=== PATIENT | female | born 1955 | race Caucasian/White ===

== ENCOUNTER → 2020-01-23 | Outpatient (CLI) | payer MEDICARE | LOC: RAH 08:08 | PROVIDERS: ATTEND Internal Medicine | DX: R10.11 Right upper quadrant pain (principal); R10.13 Epigastric pain | CPT/HCPCS: 76705 ==

== ENCOUNTER → 2020-01-28 | Outpatient (CLI) | payer MEDICARE | END | disposition home or self-care (01) | LOC: RAH 09:05 | PROVIDERS: ATTEND Internal Medicine | DX: J84.10 Pulmonary fibrosis, unspecified (principal); R10.13 Epigastric pain; Z90.49 Acquired absence of other specified parts of digestive tract | CPT/HCPCS: 74176 ==

== ENCOUNTER → 2022-12-11 | Outpatient (CLI) | payer MEDICARE ==
[2022-12-11 13:19] LABS: ALBUMIN 3.5 g/dL (3.5-5.0); CREATININE 1.3 mg/dL (0.5-1.5); POTASSIUM 4.2 mmol/L (3.5-5.1); TOTAL PROTEIN, SERUM 6.9 g/dL (6.0-8.3)
== END | disposition home or self-care (01) ==
LOC: LAB 10:22
PROVIDERS: ATTEND Student in an Organized Health Care Education/Training Program
DX: I10 Essential (primary) hypertension (principal)
CPT/HCPCS: 36415; 80053

== ENCOUNTER → 2022-12-13 | Outpatient (CLI) | payer MEDICARE ==
[~2022-12-13] MED LIST: IOHEXOL 350 MG/ML 100ML INFUS..BTL IV ONE
== END | disposition home or self-care (01) ==
LOC: RAH 09:55
PROVIDERS: ATTEND Student in an Organized Health Care Education/Training Program
DX: I82.B19 Acute embolism and thrombosis of unspecified subclavian vein (principal)
CPT/HCPCS: 71275; Q9967

== ENCOUNTER → 2022-12-25 | Outpatient (CLI) | payer MEDICARE | END | disposition home or self-care (01) | LOC: SHCH 14:30 | PROVIDERS: ATTEND Student in an Organized Health Care Education/Training Program | DX: R09.89 Other specified symptoms and signs involving the circulatory and respiratory systems (principal); R42 Dizziness and giddiness; I65.23 Occlusion and stenosis of bilateral carotid arteries | CPT/HCPCS: 93880 ==